=== PATIENT | female | born 1985 | race Two or more races ===

== ENCOUNTER 2016-03-19 20:05 | Emergency (ER) | payer OTHER ==
[~2016-03-19] VITALS: Ht 160 cm; Wt 55.7 kg
[~2016-03-19 20:05] MED LIST: CLONIDINE HCL0.1 MG PO; IBUPROFEN200 M1 PO; KEFLEX500 MG PO; MOTRIN600 MG PO; MOTRIN800 MG PO; NAPROSYN500 MG PO; NOHOMEMEDS; PERCOCET 5/31 TABLET PO; PERCOCET 7.51 TABLET PO; PRENATAL MULTI1 EAC2 PO; PRENATAL TABLE1 EAC3 PO; ZOFRAN4 MG PO
[2016-03-19] MEDS ORDERED: FLEXERIL10 MG PO (21:51)
[2016-03-19] MEDS ORDERED: ULTRAM50 MG PO (21:51)
[2016-03-19 22:16] VITALS: BP 100/53
[2016-03-19] MEDS ORDERED: NAPROSYN500 MG PO (22:22)
== END 2016-03-19 22:31 | disposition home or self-care (01) ==
LOC: EME 20:05 → RME 20:05 → EME 22:31
DX: M62.838 Other muscle spasm (principal); M54.2 Cervicalgia; V49.10XA Passenger injured in collision with unspecified motor vehicles in nontraffic accident, initial encounter
CPT/HCPCS: 99281; 99284

== ENCOUNTER 2016-05-13 20:00 | Emergency (ER) | payer OTHER ==
[~2016-05-13] VITALS: Ht 160 cm; Wt 53.1 kg
[~2016-05-13 20:00] MED LIST changes: +FLEXERIL10 MG PO; +ULTRAM50 MG PO
[2016-05-13 20:57] LABS: INFLUENZA A VIRAL ANTIGEN NEGATIVE; INFLUENZA B VIRAL ANTIGEN NEGATIVE
[2016-05-13] MEDS ORDERED: PHENERGAN-CODE120 ML PO (22:15)
[2016-05-13 23:18] VITALS: BP 116/72
== END 2016-05-13 23:19 | disposition home or self-care (01) ==
LOC: EME 20:00
DX: J11.1 Influenza due to unidentified influenza virus with other respiratory manifestations (principal); F17.200 Nicotine dependence, unspecified, uncomplicated
CPT/HCPCS: 71020; 87502; 99281; 99284

== ENCOUNTER 2017-03-27 05:19 | Inpatient (IN) | payer OTHER ==
[2017-03-27] VITALS (14 sets, daily range): BP systolic 100–126; BP diastolic 55–79
[~2017-03-27] VITALS: Ht 157.5 cm; Wt 68.2 kg
[~2017-03-27 05:19] MED LIST changes: +PHENERGAN-CODE120 ML PO
[2017-03-27] MEDS ORDERED: IBUPROFEN800 MG PO (06:19)
[2017-03-27 06:36] LABS: BASOPHIL (%) 0.3 % (0-1); EOSINOPHIL COUNT 0.1 K/uL (0-0.3); HEMATOCRIT 34.6 % (36.0-46.0); HEMOGLOBIN 11.8 G/DL (11.9-15.5); IMMATURE GRANULOCYTE (%) 0.3 % (0.0-0.7); LYMPHOCYTE (%) 27.7 % (15-42); MCHC 34.1 G/DL (30.0-36.0); MCV 90.8 FL (83-99); MONOCYTE (%) 6.4 % (3-12); MONOCYTE COUNT 0.5 K/uL (0-0.8); NEUTROPHIL (%) 64.3 % (45-76); NEUTROPHIL COUNT 4.6 K/uL (1.8-6.4); PLATELET COUNT 288 K/uL (156-360); RBC DIS.WIDTH-CV 12.8 % (11.8-14.6); RBC DIS.WIDTH-SD 42.1 % (39-53); RED BLOOD COUNT 3.81 M/uL (3.80-5.20); WHITE BLOOD COUNT 7.2 K/uL (4.1-10.2)
[2017-03-27 10:58] LABS: BENZODIAZEPINES, URINE SCREEN Negative (200 ng/mL)
[2017-03-28 03:54] VITALS: BP 97/55
[2017-03-28 07:46] VITALS: BP 94/52
[2017-03-28 08:58] LABS: BASOPHIL (%) 0.2 % (0-1); EOSINOPHIL (%) 1.4 % (0-5); EOSINOPHIL COUNT 0.1 K/uL (0-0.3); HEMATOCRIT 21.8 % (36.0-46.0); IMMATURE GRANULOCYTE (%) 0.5 % (0.0-0.7); LYMPHOCYTE (%) 35.1 % (15-42); LYMPHOCYTE COUNT 2.2 K/uL (1.0-2.8); MCH 31.1 PG (29.0-34.0); MCHC 33.5 G/DL (30.0-36.0); MCV 92.8 FL (83-99); MONOCYTE (%) 5.1 % (3-12); MONOCYTE COUNT 0.3 K/uL (0-0.8); NEUTROPHIL (%) 57.7 % (45-76); NEUTROPHIL COUNT 3.6 K/uL (1.8-6.4); RBC DIS.WIDTH-CV 12.7 % (11.8-14.6); RBC DIS.WIDTH-SD 42.5 % (39-53); WHITE BLOOD COUNT 6.3 K/uL (4.1-10.2)
[2017-03-28 08:59] LABS: HEMOGLOBIN 7.3 G/DL (11.9-15.5); PLATELET COUNT 194 K/uL (156-360); RED BLOOD COUNT 2.35 M/uL (3.80-5.20)
[2017-03-28 09:37] LABS: PLAT.SUFFICIENCY ADEQUATE
[2017-03-28 14:54] VITALS: BP 101/57
[2017-03-28 22:15] VITALS: BP 96/53
[2017-03-29] VITALS (15 sets, daily range): BP systolic 92–125; BP diastolic 3–66
[2017-03-29 07:28] LABS: HEMATOCRIT 19.2 % (36.0-46.0); MCH 30.5 PG (29.0-34.0); MCHC 33.3 G/DL (30.0-36.0); MCV 91.4 FL (83-99); NRBC (%) 0.4 /100 WBC (0-0); PLATELET COUNT 204 K/uL (156-360); RBC DIS.WIDTH-CV 12.7 % (11.8-14.6); RBC DIS.WIDTH-SD 42.2 % (39-53); WHITE BLOOD COUNT 5.7 K/uL (4.1-10.2)
[2017-03-29 07:32] LABS: HEMOGLOBIN 6.4 G/DL (11.9-15.5)
[2017-03-29 07:47] LABS: BASOPHIL (%) 0.2 % (0-1); EOSINOPHIL COUNT 0.2 K/uL (0-0.3); IMMATURE GRANULOCYTE (%) 0.7 % (0.0-0.7); LYMPHOCYTE (%) 44.3 % (15-42); LYMPHOCYTE COUNT 2.5 K/uL (1.0-2.8); MONOCYTE (%) 5.3 % (3-12); MONOCYTE COUNT 0.3 K/uL (0-0.8); NEUTROPHIL (%) 45.5 % (45-76); NEUTROPHIL COUNT 2.6 K/uL (1.8-6.4)
[2017-03-29] MEDS ORDERED: FERROUS SULFAT325 MG PO (09:53)
[2017-03-30 03:11] LABS: HEMATOCRIT 23.9 % (36.0-46.0); HEMOGLOBIN 8.3 G/DL (11.9-15.5); MCH 30.9 PG (29.0-34.0); MCHC 34.7 G/DL (30.0-36.0); MCV 88.8 FL (83-99); PLATELET COUNT 202 K/uL (156-360); RBC DIS.WIDTH-CV 13.2 % (11.8-14.6); RBC DIS.WIDTH-SD 42.1 % (39-53); WHITE BLOOD COUNT 8.2 K/uL (4.1-10.2)
[2017-03-30 03:12] LABS: RED BLOOD COUNT 2.69 M/uL (3.80-5.20)
[2017-03-30 03:54] LABS: BASOPHIL (%) 0.1 % (0-1); EOSINOPHIL COUNT 0.3 K/uL (0-0.3); IMMATURE GRANULOCYTE (%) 0.5 % (0.0-0.7); LYMPHOCYTE (%) 26.9 % (15-42); LYMPHOCYTE COUNT 2.2 K/uL (1.0-2.8); MONOCYTE (%) 3.9 % (3-12); MONOCYTE COUNT 0.3 K/uL (0-0.8); NEUTROPHIL (%) 65.6 % (45-76); NEUTROPHIL COUNT 5.4 K/uL (1.8-6.4)
== END 2017-03-30 07:35 | disposition home or self-care (01) | DRG 775 ==
LOC: LDRP-OP 05:19 → 2WEST 05:20 → LDRP-OP 05-03 13:38
PROVIDERS: Advanced Practice Midwife; Midwife; Nurse Practitioner
PROC: 10E0XZZ Delivery of Products of Conception, External Approach (ICD-10-PCS; principal; 2017-03-27)
DX: O62.3 Precipitate labor (principal); O99.324 Drug use complicating childbirth; F11.10 Opioid abuse, uncomplicated; O99.334 Smoking (tobacco) complicating childbirth; F17.210 Nicotine dependence, cigarettes, uncomplicated; O99.02 Anemia complicating childbirth; Z3A.39 39 weeks gestation of pregnancy; Z37.0 Single live birth; D50.9 Iron deficiency anemia, unspecified; K21.9 Gastro-esophageal reflux disease without esophagitis; O99.62 Diseases of the digestive system complicating childbirth
CPT/HCPCS: 80306 90; 85025; 85027; 86850; 86900; 86901; 86920; J0571; J7120; P9016

== ENCOUNTER → 2017-06-13 | Emergency (ER) | payer OTHER ==
[~2017-06-13] VITALS: Ht 160 cm; Wt 61.5 kg
[~2017-06-13] MED LIST changes: +FERROUS SULFAT325 MG PO; +IBUPROFEN800 MG PO
[2017-06-13 08:54] VITALS: BP 130/84
== END | disposition home or self-care (01) ==
LOC: EME → EDBD 07:08 → EME 07:08
DX: J02.0 Streptococcal pharyngitis (principal); F41.9 Anxiety disorder, unspecified; F17.200 Nicotine dependence, unspecified, uncomplicated
CPT/HCPCS: 99281; 99285; J1100; J1885; J2060; J7120